=== PATIENT | male | born 1965 | race Two or more races ===

== ENCOUNTER 2017-01-06 11:36 | Emergency (ER) | payer OTHER ==
[2017-01-06] MEDS ORDERED: ONDANSETRON 4 MG/2 ML VIAL IVP ONE (12:24)
[2017-01-06] MEDS ORDERED: NS 1,000 ML IV ONE (12:24)
[2017-01-06 12:35] LABS: % IMMATURE GRANULYOCYTES 0.4 % (0.0-1.1); ABSOLUTE IMMATURE GRANULOCYTES 0.04 10^3/uL (0.00-0.10); ADD DIFF? NO; ADD MORPH? NO; ADD SCAN? NO; ATYPICAL LYMPHOCYTE FLAG 0 (0-99); FRAGMENT RBC FLAG 0 (0-99); HEMATOCRIT 45.1 % (40.0-51.0); HEMOGLOBIN 15.9 g/dL (13.7-17.5); LEFT SHIFT FLG 0 (0-99); LIPEMIA HEMOLYSIS FLAG 90 (0-99); MEAN CELL HEMOGLOBIN 29.3 pg (27.9-34.1); MEAN CELL HEMOGLOBIN CONCENTR. 35.3 g/dL (32.4-36.7); MEAN CELL VOLUME 83.1 fL (81.5-99.8); MEAN PLATELET VOLUME 9.3 fL (8.7-11.7); PLATELET CLUMPS FLAG 0 (0-99); PLATELET COUNT 302 10^3/uL (150-400); RED BLOOD CELL COUNT 5.43 10^6/uL (4.40-6.38); RED CELL DISTRIBUTION WIDTH 14.1 % (11.5-15.2)
--- NOTE | 2017-01-06 12:45 | EDPHY ---
H & P Stated Complaint: 5 DAYS OF R SIDED ABDOMINAL PAIN HPI/ROS: CHIEF COMPLAINT: Abdominal pain HISTORY OF PRESENT ILLNESS: Patient complains of right-sided abdominal pain. Pain started approximately 5 days ago. Constant duration. Moderate to severe. Worse with palpation and movement, worse with Valsalva or coughing. Nausea but no vomiting. No fever chills. No trauma or injury. No constipation or diarrhea. No chest pain shortness of breath. Recently went to urgent care today , but they sent to our facility for higher level of care. No other associated complaints or modifying factors. REVIEW OF SYSTEMS: Ten systems reviewed and are negative unless otherwise noted in the HPI PAST MEDICAL HISTORY: Hypertension, diabetes mellitus, status post cholecystectomy remotely SOCIAL HISTORY: Smoker. Works and lives in [facility] FAMILY HISTORY: Noncontributory EXAMINATION General Appearance: Alert, no distress Head: normocephalic, atraumatic Eyes: Pupils equal and round, no conjunctival pallor or injection ENT, Mouth: Mucous membranes moist. No edema. Uvula midline. Airway widely patent Neck: Normal inspection, supple, non-tender Respiratory: Mild rhonchi. No wheezing, crackles or diminishment. No retractions or distress Cardiovascular: Regular rate and rhythm. No murmur. Gastrointestinal: Morbidly obese Abdomen is soft. Habitus limits the exam, but there is no obvious distention or rigidity. There is tenderness on the entire right side of the abdomen. No CVA tenderness. Neurological: A&O no focal deficits Skin: Global vitiligo. Warm and dry, no rash Extremities: Nontender, no pedal edema Psychiatric: Mood and affect normal DIFFERENTIAL DIAGNOSES: Including but not limited to diverticulitis, colitis, appendicitis, ureterolithiasis, adenitis MDM: 12:25 p.m. Right-sided abdominal pain of 5 days duration. Given the patient's history, body habitus and examination, diverticulitis is my suspicion. Differentials included above. I have ordered CT scan of the abdomen and pelvis due to habitus and difficulty obtaining a reliable examination. Vital signs are stable. 1:30 p.m. laboratory studies revealed mild leukocytosis. No significant shift. No abnormality of the chemistry. CT scan is pending. 2:30 p.m. Notified by radiologist that the CT scan of the abdomen pelvis reveals some constipation but no acute findings. I discussed this with the patient. He is feeling better at this time. He has minimal pain. No nausea. No vomiting. He is stable for discharge home. We discussed stool softeners and short course of magnesium citrate. Follow up with primary care physician for further care. Return to ER for ongoing pain, fever, chills, nausea vomiting or constipation the further. He is comfortable this plan and discharged home stable condition. SUPERVISION: This patient was independently evaluated without direct examination by the attending physician. Case was discussed with attending physician. Source: Patient - Personal History Current Tetanus Diphtheria and Acellular Pertussis (TDAP): Yes Tetanus Vaccine Date: <10 - Medical/Surgical History Hx Asthma: No Hx Chronic Respiratory Disease: No Hx Diabetes: Yes Hx Cardiac Disease: Yes Hx Renal Disease: No Hx Cirrhosis: No Hx Alcoholism: No Hx HIV/AIDS: No Hx Splenectomy or Spleen Trauma: No Other PMH: HTN, DM, sleep apnea, CAD with one stent placed almost 2 yrs ago - Social History Smoking Status: Light smoker Constitutional: Initial Vital Signs Temperature (C) 98.2 F 01/06/17 11:37 Heart Rate 63 01/06/17 11:37 Respiratory Rate 16 01/06/17 11:37 Blood Pressure 207/126 H 01/06/17 11:37 O2 Sat (%) 93 01/06/17 11:37 O2 Delivery Mode Room Air Allergies/Adverse Reactions: No Known Allergies Allergy (Unverified 01/06/17 11:42) Home Medications: Medication Instructions Recorded Lisinopril [Zestril 40 mg (*)] 80 mg PO DAILY 04/02/14 amLODIPine BESYLATE [Norvasc 10 mg 10 mg PO DAILY 04/02/14 (*)] metFORMIN HCL [Glucophage 500 mg 1,000 mg PO BIDMEAL 04/02/14 (*)] Ibuprofen [Motrin (*)] 600 mg PO DAILY PRN 11/13/15 Metoprolol Succinate Xr [Toprol Xl 100 mg PO BID 11/13/15 100 mg (*)] glyBURIDE [Micronase 5 mg] 5 mg PO DAILY@08 11/13/15 Insulin 01/06/17 Magnesium Citrate [Magnesium 300 ml PO ONCE #1 bottle 01/06/17 Citrate 300 ml (*)] Medical Decision Making - Diagnostics Imaging Results: Imaging Impressions Abdomen CT 01/06/17 12:24 Impression: 1. Constipation. 2. Diverticulosis without evidence of diverticulitis. 3. Fatty infiltration of the liver. 4. Small fat-containing incisional hernia. 5. Additional findings as above. Findings discussed with Morris Shearer PA-C on January 06, 2017 at 1415 hours. - Data Points Laboratory Results: Laboratory Results 01/06/17 12:20 01/06/17 12:20 01/06/17 01/06/17 01/06/17 14:10 12:20 12:20 WBC RBC Hgb Hct MCV MCH MCHC RDW Plt Count MPV Neut % (Auto) Lymph % (Auto) Bartholomew % (Auto) Eos % (Auto) Baso % (Auto) Nucleat RBC Rel Count Absolute Neuts (auto) Absolute Lymphs (auto) Absolute Monos (auto) Absolute Eos (auto) Absolute Basos (auto) Absolute Nucleated RBC Immature Gran % Immature Gran # PT 13.9 SEC SEC (12.0-15.0) INR 1.08 (0.83-1.16) APTT 27.5 SEC SEC (23.0-38.0) Sodium 141 mEq/L mEq/L (134-144) Potassium 3.5 mEq/L mEq/L (3.5-5.2) Chloride 104 mEq/L mEq/L (97-110) Carbon Dioxide 23 mEq/l mEq/l (22-31) Anion Gap 14 mEq/L mEq/L (8-16) BUN 16 mg/dL mg/dL (7-23) Creatinine 0.8 mg/dL mg/dL (0.7-1.3) Estimated GFR > 60 Glucose 146 mg/dL H mg/dL (70-100) Calcium 9.3 mg/dL mg/dL (8.5-10.4) Total Bilirubin 1.0 mg/dL mg/dL (0.1-1.4) Conjugated Bilirubin 0.3 mg/dL mg/dL (0.0-0.5) Unconjugated Bilirubin 0.7 mg/dL mg/dL (0.0-1.1) AST 25 IU/L IU/L (17-59) ALT 29 IU/L IU/L (21-72) Alkaline Phosphatase 95 IU/L IU/L (38-126) Total Protein 6.9 g/dL g/dL (6.3-8.2) Albumin 3.8 g/dL g/dL (3.5-5.0) Lipase 28.0 IU/L IU/L (23-300) Urine Color YELLOW Urine Appearance CLEAR Urine pH 6.0 (5.0-7.5) Ur Specific [place] > 1.035 H (1.002-1.030) Urine Protein NEGATIVE (NEGATIVE) Urine Ketones NEGATIVE (NEGATIVE) Urine Blood NEGATIVE (NEGATIVE) Urine Nitrate NEGATIVE (NEGATIVE) Urine Bilirubin NEGATIVE (NEGATIVE) Urine Urobilinogen NEGATIVE EU EU (0.2-1.0) Ur Leukocyte Esterase NEGATIVE (NEGATIVE) Urine RBC 1-3 /hpf /hpf (0-3) Urine WBC 1-3 /hpf /hpf (0-3) Ur Epithelial Cells NONE SEEN /lpf /lpf (NONE-1+) Urine Mucus TRACE /lpf /lpf (NONE-1+) Urine Glucose NEGATIVE (NEGATIVE) 01/06/17 12:20 WBC 10.45 10^3/uL H 10^3/uL (3.80-9.50) RBC 5.43 10^6/uL 10^6/uL (4.40-6.38) Hgb 15.9 g/dL g/dL (13.7-17.5) Hct 45.1 % % (40.0-51.0) MCV 83.1 fL fL (81.5-99.8) MCH 29.3 pg pg (27.9-34.1) MCHC 35.3 g/dL g/dL (32.4-36.7) RDW 14.1 % % (11.5-15.2) Plt Count 302 10^3/uL 10^3/uL (150-400) MPV 9.3 fL fL (8.7-11.7) Neut % (Auto) 60.9 % % (39.3-74.2) Lymph % (Auto) 24.3 % % (15.0-45.0) Bartholomew % (Auto) 9.6 % % (4.5-13.0) Eos % (Auto) 3.9 % % (0.6-7.6) Baso % (Auto) 0.9 % % (0.3-1.7) Nucleat RBC Rel Count 0.0 % % (0.0-0.2) Absolute Neuts (auto) 6.37 10^3/uL 10^3/uL (1.70-6.50) Absolute Lymphs (auto) 2.54 10^3/uL 10^3/uL (1.00-3.00) Absolute Monos (auto) 1.00 10^3/uL H 10^3/uL (0.30-0.80) Absolute Eos (auto) 0.41 10^3/uL H 10^3/uL (0.03-0.40) Absolute Basos (auto) 0.09 10^3/uL 10^3/uL (0.02-0.10) Absolute Nucleated RBC 0.00 10^3/uL 10^3/uL (0-0.01) Immature Gran % 0.4 % % (0.0-1.1) Immature Gran # 0.04 10^3/uL 10^3/uL (0.00-0.10) PT INR APTT Sodium Potassium Chloride Carbon Dioxide Anion Gap BUN Creatinine Estimated GFR Glucose Calcium Total Bilirubin Conjugated Bilirubin Unconjugated Bilirubin AST ALT Alkaline Phosphatase Total Protein Albumin Lipase Urine Color Urine Appearance Urine pH Ur Specific [place] Urine Protein Urine Ketones Urine Blood Urine Nitrate Urine Bilirubin Urine Urobilinogen Ur Leukocyte Esterase Urine RBC Urine WBC Ur Epithelial Cells Urine Mucus Urine Glucose Medications Given: Discontinued Medications Sodium Chloride (Ns) 1,000 mls @ 0 mls/hr IV EDNOW ONE; Wide Open PRN Reason: Protocol Stop: 01/06/17 12:25 Last Admin: 01/06/17 12:32 Dose: 1,000 mls Morphine Sulfate (Morphine) 6 mg IVP EDNOW ONE Stop: 01/06/17 12:25 Last Admin: 01/06/17 12:32 Dose: 6 mg Ondansetron HCl (Zofran) 4 mg IVP EDNOW ONE Stop: 01/06/17 12:25 Last Admin: 01/06/17 12:33 Dose: 4 mg Departure - Departure Disposition: Home, Routine, Self-Care Clinical Impression: Abdominal pain Qualifiers: Abdominal location: generalized Qualified Code(s): R10.84 - Generalized abdominal pain Constipation Qualifiers: Constipation type: unspecified constipation type Qualified Code(s): K59.00 - Constipation, unspecified Condition: Good Instructions: Constipation (ED), High Fiber Diet (ED), Fleet Enema (ED) Additional Instructions: 1. Magnesium citrate [id number] x1 2. Follow up primary care physician 3. Return here for worsening pain, nausea, vomiting, fever, chills Referrals: [facility],. [Clinic] - As per Instructions Maryann Flor MD [Medical Doctor] - As per Instructions Prescriptions: Magnesium Citrate [Magnesium Citrate 300 ml (*)] 300 ml PO ONCE #1 bottle
[2017-01-06 12:50] LABS: ALANINE AMINOTRANSFERASE 29 IU/L (21-72); ALBUMIN 3.8 g/dL (3.5-5.0); ALKALINE PHOSPHATASE 95 IU/L (38-126); ANION GAP 14 mEq/L (8-16); ASPARTATE AMINOTRANSFERASE 25 IU/L (17-59); BILIRUBIN-CONJUGATED 0.3 mg/dL (0.0-0.5); BILIRUBIN-UNCONJUGATED 0.7 mg/dL (0.0-1.1); CALCIUM 9.3 mg/dL (8.5-10.4); CARBON DIOXIDE 23 mEq/l (22-31); CHLORIDE 104 mEq/L (97-110); CREATININE 0.8 mg/dL (0.7-1.3); GLOMERULAR FILTRATION RATE > 60; GLUCOSE 146 mg/dL (70-100); INR 1.08 (0.83-1.16); POTASSIUM 3.5 mEq/L (3.5-5.2); PROTIME(PATIENT) 13.9 SEC (12.0-15.0); SODIUM 141 mEq/L (134-144); TOTAL PROTEIN 6.9 g/dL (6.3-8.2)
[2017-01-06 12:51] LABS: APTT 27.5 SEC (23.0-38.0)
[2017-01-06] MEDS ORDERED: IOPAMIDOL (ISOVUE-300) 100 ML BTL ONE (13:20)
[2017-01-06 14:15] VITALS: BP 142/80; PULSE 60; RESP 15; O2SAT 95
[2017-01-06 14:22] LABS: COLOR YELLOW; LEUKOCYTE ESTERASE,URINE NEGATIVE (NEGATIVE); NITRITE,URINE NEGATIVE (NEGATIVE)
[2017-01-06 14:23] LABS: MUCUS TRACE /lpf (NONE-1+)
[2017-01-06 15:00] VITALS: TEMP 97.5
== END 2017-01-06 15:00 | disposition home or self-care (01) ==
DX: K59.00 Constipation, unspecified (principal); E86.9 Volume depletion, unspecified; E11.9 Type 2 diabetes mellitus without complications; I10 Essential (primary) hypertension; I25.10 Atherosclerotic heart disease of native coronary artery without angina pectoris; Z79.4 Long term (current) use of insulin; Z79.84 Long term (current) use of oral hypoglycemic drugs; Z87.891 Personal history of nicotine dependence
CPT/HCPCS: 96374; J2405; Q9967